=== PATIENT | male | born 1940 | race Caucasian/White ===

== ENCOUNTER 2022-04-29 10:43 | Inpatient (IN) | payer MEDICARE ==
[~2022-04-29] VITALS: Ht 177.8 cm; Wt 70.0 kg
[2022-04-29] MEDS ORDERED: GLIM2TAB4 PO (10:56)
[2022-04-29] MEDS ORDERED: METF10004 PO (10:56)
[2022-04-29] MEDS ORDERED: ROSU10TA6 PO (10:56)
[2022-04-29] MEDS ORDERED: AMLO25TA PO (10:56)
[2022-04-29] MEDS ORDERED: LISI20TA37 PO (10:56)
[2022-04-29 12:29] LABS: BASO % 0.2 % (0.0-1.0); EOS % 0.5 % (0.0-3.0); HEMATOCRIT 43.2 % (42.0-52.0); HEMOGLOBIN 14.7 g/dl (13.5-17.5); LYMPH # 1.7 10^3/uL (1.5-5.0); LYMPH % 27.8 % (24.0-44.0); MEAN CORPUSCULAR HEMOGLOBIN 28.8 pg (27.0-33.0); MEAN CORPUSCULAR VOLUME 84.7 fl (80.0-96.0); MONO # 0.4 10^3/uL (0.0-0.8); MONO % 5.9 % (2.0-8.0); NEUTROPHILS % 65.1 % (36.0-66.0); PLATELET COUNT, AUTOMATED 154 10^3/uL (150-450); WHITE BLOOD COUNT 6.1 10^3/uL (4.0-10.0)
[2022-04-29] MEDS ORDERED: MECLIZINE 25 MG TABLET PO ONE (12:30)
[2022-04-29 12:31] VITALS: BP 199/91
[2022-04-29] MEDS ORDERED: ISOVUE-370 76% 100ML VIAL As Ordered ONE (12:32)
[2022-04-29] MEDS ORDERED: amLODIPine 5 MG TAB PO ONE ×2 (12:35→16:45)
[2022-04-29] MEDS ORDERED: ONDANSETRON 4MG 2ML VIAL IV ONE (12:50)
[2022-04-29 13:03] LABS: ALBUMIN 3.9 GM/DL (3.2-5.2); ALT/SGPT 23 U/L (12-78); BILIRUBIN,TOTAL 0.5 MG/DL (0.2-1.0); BLOOD UREA NITROGEN 13 MG/DL (7-18); CALCIUM LEVEL 9.2 MG/DL (8.8-10.2); CARBON DIOXIDE LEVEL 27 MEQ/L (21-32); CHLORIDE LEVEL 103 MEQ/L (98-107); CREATININE FOR GFR 0.71 MG/DL (0.70-1.30); GLOMERULAR FILTRATION RATE > 60.0 (>35); GLUCOSE, FASTING 199 MG/DL (70-100); SODIUM LEVEL 135 MEQ/L (136-145); TOTAL PROTEIN 6.6 GM/DL (6.4-8.2)
[2022-04-29] MEDS ORDERED: hydrALAZINE 20MG/ML 1ML VIAL (J0360 PER 20MG) IV STA (13:38)
[2022-04-29] MEDS ORDERED: PRESCAP PO (13:57)
[2022-04-29] MEDS ORDERED: METF500T13 PO (13:57)
[2022-04-29] MEDS ORDERED: SEMA7TAB2 PO (13:57)
[2022-04-29] MEDS ORDERED: RA M10TA PO (13:57)
[2022-04-29] MEDS ORDERED: HOME MED LIST COMPLETE! XX SCH (14:00)
[2022-04-29 14:18] LABS: RSV AMPLIFICATION NEGATIVE (NEGATIVE)
[2022-04-29] MEDS: NITROGLYCERIN 2% OINT 1 GM *U/D* PKT TOP SCH ×2 (14:21→18:34)
[2022-04-29] MEDS ORDERED: hydrALAZINE 20MG/ML 1ML VIAL (J0360 PER 20MG) IV SCH (18:00)
[2022-04-29 18:29] VITALS: BP 162/82
[2022-04-29] MEDS ORDERED: hydrALAZINE 20MG/ML 1ML VIAL (J0360 PER 20MG) IV PRN (18:30)
[2022-04-29] MEDS: **hydrALAZINE HCL** 25 MG TAB PO SCH (18:33)
[2022-04-29 18:46] VITALS: BP 166/82
[2022-04-29 19:28] LABS: CK-MB VALUE MASS 1.3 NG/ML (<3.6); MB/CK RELATIVE INDEX 2.45 (< OR =4)
[2022-04-29 20:00] VITALS: BP 132/77
[2022-04-29] MEDS: ENOXAPARIN 40MG/0.4ML SYRINGE (J1650 PER 10MG) SC SCH (20:25)
[2022-04-30] VITALS: BP 126/68
[2022-04-30 00:49] LABS: CK-MB VALUE MASS 1.1 NG/ML (<3.6); MB/CK RELATIVE INDEX 2.24 (< OR =4)
[2022-04-30 04:00] VITALS: BP 127/72
[2022-04-30] MEDS: **hydrALAZINE HCL** 25 MG TAB PO SCH ×4 (05:17→17:12)
[2022-04-30] MEDS: NITROGLYCERIN 2% OINT 1 GM *U/D* PKT TOP SCH ×4 (05:18→17:13)
[2022-04-30 06:38] LABS: HEMATOCRIT 39.1 % (42.0-52.0); HEMOGLOBIN 13.3 g/dl (13.5-17.5); MEAN CORPUSCULAR HEMOGLOBIN 28.7 pg (27.0-33.0); MEAN CORPUSCULAR VOLUME 84.3 fl (80.0-96.0); PLATELET COUNT, AUTOMATED 169 10^3/uL (150-450); RED BLOOD COUNT 4.64 10^6/uL (4.30-6.10)
[2022-04-30] MEDS ORDERED: DEXTROSE 50% 50 ML SYRINGE IV PRN (07:00)
[2022-04-30] MEDS ORDERED: GLUCOSE 4GM CHEW TABLET PO PRN (07:00)
[2022-04-30] MEDS ORDERED: GLUCAGON INJ 1MG VIAL SC PRN (07:00)
[2022-04-30 07:07] LABS: HEMOGLOBIN A1c 6.5 %
[2022-04-30 07:10] LABS: CK-MB VALUE MASS < 1.0 NG/ML (<3.6); CPK CREATINE PHOSPHOKINASE 45 U/L (39-308); MB/CK RELATIVE INDEX 2.22 (< OR =4)
[2022-04-30 07:20] LABS: BLOOD UREA NITROGEN 16 MG/DL (7-18); CALCIUM LEVEL 9.3 MG/DL (8.8-10.2); CARBON DIOXIDE LEVEL 27 MEQ/L (21-32); CHLORIDE LEVEL 104 MEQ/L (98-107); CHOLESTEROL LEVEL 107 MG/DL (<200); CHOLESTEROL RISK RATIO 2.972 (<5); CREATININE FOR GFR 0.88 MG/DL (0.70-1.30); GLOMERULAR FILTRATION RATE > 60.0 (>35); GLUCOSE, FASTING 137 MG/DL (70-100); HDL CHOLESTEROL 36 MG/DL (>40); LDL CHOLESTEROL 43 MG/DL (<100); NON-HDL-C 71 MG/DL; POTASSIUM SERUM 3.5 MEQ/L (3.5-5.1); SODIUM LEVEL 136 MEQ/L (136-145); TRIGLYCERIDES LEVEL 142 MG/DL (<150)
[2022-04-30] MEDS: INSULIN LISPRO (NovoLOG) PER UNIT SC SCH ×3 (07:30→17:12)
[2022-04-30 08:00] VITALS: BP 142/75
[2022-04-30] MEDS ORDERED: predniSONE 20 MG TAB PO SCH (09:00)
[2022-04-30] MEDS ORDERED: SENOKOT S TAB PO PRN (11:35)
[2022-04-30 12:00] VITALS: BP 161/80
[2022-04-30 16:00] VITALS: BP 153/73
[2022-04-30 20:00] VITALS: BP 140/73
[2022-04-30] MEDS: ENOXAPARIN 40MG/0.4ML SYRINGE (J1650 PER 10MG) SC SCH ×2 (20:16→20:19)
[2022-04-30] MEDS ORDERED: ROSUVASTATIN 10 MG TAB (CRESTOR) PO SCH (21:00)
[2022-04-30] MEDS ORDERED: INSULIN LISPRO (NovoLOG) PER UNIT SC SCH (21:00)
[2022-05-01] VITALS: BP 159/74
[2022-05-01] MEDS ORDERED: RAMELTEON 8 MG TAB (ROZEREM) PO ONE
[2022-05-01] MEDS: **hydrALAZINE HCL** 25 MG TAB PO SCH ×3 (00:15→12:22)
[2022-05-01] MEDS: NITROGLYCERIN 2% OINT 1 GM *U/D* PKT TOP SCH ×3 (00:16→12:22)
[2022-05-01 04:00] VITALS: BP 132/66
[2022-05-01 05:13] LABS: HEMATOCRIT 37.8 % (42.0-52.0); HEMOGLOBIN 12.9 g/dl (13.5-17.5); MEAN CORPUSCULAR HGB CONC 34.1 g/dl (32.0-36.5); MEAN CORPUSCULAR VOLUME 84.9 fl (80.0-96.0); PLATELET COUNT, AUTOMATED 170 10^3/uL (150-450); RED BLOOD COUNT 4.45 10^6/uL (4.30-6.10); WHITE BLOOD COUNT 9.3 10^3/uL (4.0-10.0)
[2022-05-01 05:55] LABS: BLOOD UREA NITROGEN 26 MG/DL (7-18); CALCIUM LEVEL 9.1 MG/DL (8.8-10.2); CARBON DIOXIDE LEVEL 25 MEQ/L (21-32); CHLORIDE LEVEL 107 MEQ/L (98-107); CREATININE FOR GFR 0.78 MG/DL (0.70-1.30); GLOMERULAR FILTRATION RATE > 60.0 (>35); GLUCOSE, FASTING 259 MG/DL (70-100); SODIUM LEVEL 139 MEQ/L (136-145)
[2022-05-01 07:49] VITALS: BP 152/78
[2022-05-01] MEDS ORDERED: predniSONE 20 MG TAB PO SCH (09:00)
[2022-05-01] MEDS: INSULIN LISPRO (NovoLOG) PER UNIT SC SCH ×2 (09:19→12:23)
[2022-05-01] MEDS ORDERED: HYDR25TA PO (10:25)
[2022-05-01] MEDS ORDERED: AMLO1TAB25 PO (10:25)
[2022-05-01] MEDS ORDERED: PRED10TA2 PO (10:25)
[2022-05-01 12:00] VITALS: BP 162/78
[2022-05-01 12:22] VITALS: BP 162/78
[2022-05-01 13:40] VITALS: BP 163/83
== END 2022-05-01 14:44 | disposition home or self-care (01) | DRG 305 ==
LOC: M ED 10:43 → M ED INP 13:36 → ENRESERV 17:02 → M PCU 18:19
PROVIDERS: ADMIT General Practice; ATTEND Family Medicine
DX: I16.9 Hypertensive crisis, unspecified (principal); I10 Essential (primary) hypertension; E78.5 Hyperlipidemia, unspecified; R42 Dizziness and giddiness; E11.9 Type 2 diabetes mellitus without complications; F17.200 Nicotine dependence, unspecified, uncomplicated; Z79.84 Long term (current) use of oral hypoglycemic drugs; Z79.899 Other long term (current) drug therapy